=== PATIENT | female | born 1935 | race Caucasian/White ===

== ENCOUNTER → 2016-09-19 | Outpatient (CLI) | payer MEDICARE, BC ==
[~2016-09-19] MED LIST: ALENDRONATE SOD70 MG PO; ALENDRONATE SODI5 MG; ASPIRIN EC81 M1 PO; ASPIRIN81 M2; AUGMENTIN PO; AZATHIOPRINE50 M1 PO; AZITHROMYCIN250 MG; BRILINTA60 MG; CARVEDILOL3.125 MG PO; COREG; CRESTOR PO; FERROUS FUMARAT1 TAB PO; FOSAMAX PO; IRON TABLETS1 TAB; ISORDIL PO; KEPPRA500 M1 PO; LANSOPRAZOLE30 M3 PO; LASIX; LEVEMIR; LEVEMIR100 U/ML SUBQ; LEVOTHROID125 MCG PO; LISINOPRIL2.5 MG; MEVACOR; NEOSPORIN OD; NORVASC; NORVASC PO; NOVOLOG100 U/M1; NOVOLOG100 U/M1 SUBQ; OS-CAL 500 + D500 MG PO; OS-CAL 500500 MG; PREDNISONE1 MG PO; PREDNISONE5 M1; RANEXA500 MG; SYNTHROID125; TESSALON PERLE100 M1; TYLENOL #3 PO; TYLOX1 CAP 5/50 PO
== END | disposition home or self-care (01) ==
LOC: CLAB 16:23
DX: R58 Hemorrhage, not elsewhere classified (principal)
CPT/HCPCS: 86850; 86870; 86880; 86885; 86900; 86901; 86905; 86922

== ENCOUNTER → 2016-09-20 | Outpatient (CLI) | payer MEDICARE, BC | END | disposition home or self-care (01) | LOC: CSSDAY 11:13 | DX: R58 Hemorrhage, not elsewhere classified (principal) | CPT/HCPCS: 36415; 36430; J1200; J1940; P9016 ==